=== PATIENT | male | born 1975 | race Caucasian/White ===

== ENCOUNTER 2023-01-27 20:52 | Emergency (ER) | payer OTHER ==
[2023-01-27] MEDS ORDERED: Famotidine 20 MG/2 ML SDV IVPUSH ONE (21:32)
[2023-01-27] MEDS ORDERED: Sodium Chloride 0.9% 1,000 ML IV ONE (21:32)
[2023-01-27] MEDS ORDERED: Ondansetron 4 MG/2 ML SDV IVPUSH ONE (21:32)
[2023-01-27] MEDS ORDERED: Morphine 4 MG/ML Syringe IVPUSH ONE (21:32)
[2023-01-27 21:52] LABS: BASOPHILS ABSOLUTE AUTO 0.1 K/uL (0.0-0.1); BASOPHILS PERCENT AUTO 0.6 % (0.0-1.5); EOSINOPHILS ABSOLUTE AUTO 0.1 K/uL (0.0-0.7); EOSINOPHILS PERCENT AUTO 0.7 % (0.0-7.0); HEMATOCRIT 41.5 % (38.0-50.0); HEMOGLOBIN 13.9 g/dL (13.0-17.0); LYMPHOCYTES ABSOLUTE AUTO 1.1 K/uL (0.6-2.4); LYMPHOCYTES PERCENT AUTO 12.4 % (16.0-40.0); MEAN CORPUSCULAR HEMOGLOBIN 30.8 pg (27.0-32.0); MEAN CORPUSCULAR HGB CONC 33.5 g/dL (31.0-37.0); MEAN CORPUSCULAR VOLUME 91.8 fL (80.0-98.0); MONOCYTES ABSOLUTE AUTO 0.5 K/uL (0.0-0.8); MONOCYTES PERCENT AUTO 5.8 % (0.0-15.0); NEUTROPHILS ABSOLUTE AUTO 7.1 K/uL (1.4-5.7); NEUTROPHILS PERCENT AUTO 80.5 % (48.0-80.0); NRBC ABSOLUTE 0 K/uL; PLATELET COUNT,PLT 228 K/uL (150-400); RED BLOOD CELL COUNT 4.52 M/uL (4.50-5.90); WHITE BLOOD CELL COUNT,WBC 8.76 K/uL (4.0-11.0)
[2023-01-27 22:37] LABS: LACTIC ACID 2.4 mmol/L (0.4-2.0)
[2023-01-27 22:44] LABS: A/G RATIO 0.5 (0.9-1.6); ALBUMIN 2.4 g/dL (3.4-5.0); CALCIUM 8.6 mg/dL (8.5-10.1); CARBON DIOXIDE,CO2 23.9 mmol/L (21.0-32.0); CREATININE 0.8 mg/dL (0.8-1.3); EST CRCL DRUG DOSING (CG) 137.13 mL/min; MAGNESIUM 1.6 mg/dL (1.8-2.4)
[2023-01-27] MEDS: Sodium Chloride 0.9% 1,000 ML IV ONE (23:01)
[2023-01-28] MEDS ORDERED: Ondansetron 4 MG/2 ML SDV IVPUSH ONE (00:09)
[2023-01-28] MEDS ORDERED: Morphine 4 MG/ML Syringe IVPUSH ONE (00:09)
[2023-01-28] MEDS: Sodium Chloride 0.9% 1,000 ML IV ONE (00:13)
== END 2023-01-28 01:40 | disposition home or self-care (01) ==
LOC: MW.ED 20:52
DX: K80.20 Calculus of gallbladder without cholecystitis without obstruction (principal); I11.0 Hypertensive heart disease with heart failure; I50.9 Heart failure, unspecified; J45.909 Unspecified asthma, uncomplicated; E66.01 Morbid (severe) obesity due to excess calories; Z79.82 Long term (current) use of aspirin; Z79.899 Other long term (current) drug therapy; Z68.44 Body mass index [BMI] 60.0-69.9, adult
CPT/HCPCS: 36415; 74176; 80053; 82947; 83605; 83690; 83735; 84484; 85025; 93005; 96361; 96374; 96375; 96376; 99284; J2270; J2405; J3490; J7030; 93010; 99283

== ENCOUNTER 2023-01-29 16:16 | Emergency (ER) | payer OTHER ==
[2023-01-29] MEDS ORDERED: Promethazine 25 MG/ML SDV IM ONE (17:11)
[2023-01-29] MEDS ORDERED: HYDROmorphone 1 MG/ML Syringe IM ONE (17:15)
[2023-01-29 17:52] LABS: BASOPHILS ABSOLUTE AUTO 0.1 K/uL (0.0-0.1); BASOPHILS PERCENT AUTO 0.6 % (0.0-1.5); EOSINOPHILS ABSOLUTE AUTO 0.1 K/uL (0.0-0.7); HEMOGLOBIN 14.5 g/dL (13.0-17.0); LYMPHOCYTES ABSOLUTE AUTO 1.4 K/uL (0.6-2.4); LYMPHOCYTES PERCENT AUTO 13.3 % (16.0-40.0); MEAN CORPUSCULAR HEMOGLOBIN 31.2 pg (27.0-32.0); MEAN CORPUSCULAR HGB CONC 33.7 g/dL (31.0-37.0); MEAN CORPUSCULAR VOLUME 92.5 fL (80.0-98.0); MONOCYTES ABSOLUTE AUTO 0.7 K/uL (0.0-0.8); MONOCYTES PERCENT AUTO 6.9 % (0.0-15.0); NEUTROPHILS ABSOLUTE AUTO 7.9 K/uL (1.4-5.7); NEUTROPHILS PERCENT AUTO 78.2 % (48.0-80.0); NRBC ABSOLUTE 0 K/uL; PLATELET COUNT,PLT 246 K/uL (150-400); RED BLOOD CELL COUNT 4.65 M/uL (4.50-5.90); WHITE BLOOD CELL COUNT,WBC 10.14 K/uL (4.0-11.0)
[2023-01-29 18:06] LABS: A/G RATIO 0.5 (0.9-1.6); ALBUMIN 2.6 g/dL (3.4-5.0); BILIRUBIN TOTAL 1.1 mg/dL (0.2-1.0); CALCIUM 8.9 mg/dL (8.5-10.1); CARBON DIOXIDE,CO2 26.1 mmol/L (21.0-32.0); CREATININE 0.9 mg/dL (0.8-1.3); EST CRCL DRUG DOSING (CG) 121.9 mL/min; POTASSIUM,K 3.7 mmol/L (3.5-5.1); PROTEIN TOTAL,TP 7.4 g/dL (6.4-8.2)
[2023-01-29 18:19] LABS: LACTIC ACID 1.8 mmol/L (0.4-2.0)
[2023-01-29] MEDS ORDERED: Ondansetron 4 MG Tab.DIS PO ONE (18:31)
[2023-01-29] MEDS ORDERED: Acetaminophen/HYDROcodone 325-10 MG Tab PO ONE (19:58)
== END 2023-01-29 20:08 | disposition home or self-care (01) ==
LOC: MW.ED 16:16
DX: K80.20 Calculus of gallbladder without cholecystitis without obstruction (principal); I11.0 Hypertensive heart disease with heart failure; I50.9 Heart failure, unspecified; J45.909 Unspecified asthma, uncomplicated; E66.01 Morbid (severe) obesity due to excess calories; Z79.82 Long term (current) use of aspirin; Z68.44 Body mass index [BMI] 60.0-69.9, adult
CPT/HCPCS: 36415; 80053; 83605; 83690; 85025; 96372; 99284; A9270; J1170; J2550; 99283